=== PATIENT | male | born 1950 | race Hispanic/Latino ===

== ENCOUNTER 2021-03-04 12:17 | Emergency (ER) | payer MEDICARE ==
[~2021-03-04] VITALS: Ht 157.5 cm; Wt 93.9 kg
[2021-03-04] MEDS ORDERED: CEPHALEXIN 500 MG CAPSULE PO ONE (12:30)
[2021-03-04] MEDS ORDERED: DEXAMETHASONE 4 MG TAB PO SCH (12:30)
[2021-03-04] MEDS ORDERED: KETOROLAC 60 MG VIAL (30MG/ML) IM ONE (12:30)
[2021-03-04 12:43] LABS: BASOPHILS % (AUTO) 0.5 % (0.0-5.0); EOSINOPHILS % (AUTO) 1.3 % (0.0-8.0); HEMATOCRIT 49.8 % (42-54); LYMPHOCYTES % (AUTO) 18.9 % (21.0-51.0); MEAN CORPUSCULAR HEMOGLOBIN 31.7 pg (27.0-33.0); MEAN CORPUSCULAR HGB CONC 32.9 g/dL (32.0-36.0); MEAN CORPUSCULAR VOLUME 96.1 fL (79-99); MONOCYTES % (AUTO) 7.8 % (3.0-13.0); NEUTROPHILS % (AUTO) 70.8 % (40.0-77.0); PLATELET COUNT (AUTO) 297 K/uL (130-400); RED BLOOD CELL COUNT(AUTO) 5.18 MIL/uL (4.50-6.20); RED CELL DISTRIBUTION WIDTH 13.3 % (11.0-15.5); WHITE BLOOD COUNT (AUTO) 9.8 K/uL (4.8-10.8)
[2021-03-04 12:55] LABS: CREATININE 0.9 mg/dL (0.5-1.5); POTASSIUM 3.7 mmol/L (3.5-5.1)
[2021-03-04 13:00] LABS: ALBUMIN 3.4 g/dL (3.5-5.0); BILIRUBIN,TOTAL 0.4 mg/dL (0.2-1.0); CRP QUANTITATIVE 10.8 mg/L (0.00-9.0); TOTAL PROTEIN, SERUM 7.8 g/dL (6.0-8.3); URIC ACID 6.3 mg/dL (2.6-7.2)
[2021-03-04] MEDS ORDERED: CEPH500B PO (13:33)
[2021-03-04] MEDS ORDERED: INDO50CA97 PO (13:33)
[2021-03-04 14:16] VITALS: BP 133/86
== END 2021-03-04 14:26 | disposition home or self-care (01) ==
LOC: EDH 12:17
DX: L03.032 Cellulitis of left toe (principal); M11.272 Other chondrocalcinosis, left ankle and foot
CPT/HCPCS: 36415; 73630; 80053; 84550; 85025; 86140; 96372; 99284; J1885; J8540

== ENCOUNTER 2021-08-02 06:48 | Day surgery (SDC) | payer MEDICARE ==
[2021-07-30 12:26] LABS: BASOPHILS % (AUTO) 0.8 % (0.0-5.0); EOSINOPHILS % (AUTO) 2.3 % (0.0-8.0); HEMATOCRIT 51.3 % (42-54); LYMPHOCYTES % (AUTO) 21.5 % (21.0-51.0); MEAN CORPUSCULAR HEMOGLOBIN 31.1 pg (27.0-33.0); MEAN CORPUSCULAR HGB CONC 32.6 g/dL (32.0-36.0); MEAN CORPUSCULAR VOLUME 95.5 fL (79-99); MONOCYTES % (AUTO) 8.1 % (3.0-13.0); NEUTROPHILS % (AUTO) 66.7 % (40.0-77.0); PLATELET COUNT (AUTO) 266 K/uL (130-400); RED BLOOD CELL COUNT(AUTO) 5.37 MIL/uL (4.50-6.20); RED CELL DISTRIBUTION WIDTH 13.4 % (11.0-15.5); WHITE BLOOD COUNT (AUTO) 8.8 K/uL (4.8-10.8)
[2021-07-30 12:30] LABS: APPEARANCE,URINE Clear (CLEAR); BILIRUBIN,URINE Negative (NEGATIVE); COLOR,URINE Dark Yellow (YELLOW); GLUCOSE, URINE (UA) Negative (NEGATIVE); KETONES,URINE Trace mg/dL (NEGATIVE); LEUKOCYTE ESTERASE ,URINE Negative (NEGATIVE); NITRATE,URINE Negative (NEGATIVE); OCCULT BLOOD,URINE Negative (NEGATIVE); PH,URINE 5.5 (5.0-8.0); PROTEIN,URINE Negative (NEGATIVE)
[2021-07-30 12:37] LABS: CREATININE 0.8 mg/dL (0.5-1.5)
[2021-07-30 12:53] LABS: BACTERIA,URINE Rare /HPF (None Seen); RBC,URINE 0-1 /HPF (0-1); SQUAMOUS EPITHELIAL CELL,UR Rare /HPF (0-2); WBC,URINE 0-1 /HPF (0-1)
[2021-07-30 13:20] LABS: INR 1.04 (0.85-1.15); PROTHROMBIN TIME 11.3 SEC (9.6-11.6)
[2021-07-30 13:21] LABS: PARTIAL THROMBOPLASTIN TIME 30.4 SEC (26.3-35.5)
[2021-08-01 08:36] VITALS: BP 129/69
[2021-08-02] VITALS (16 sets, daily range): BP systolic 107–148; BP diastolic 72–95
[~2021-08-02] VITALS: Ht 157.5 cm; Wt 93.1 kg
[2021-08-02] MEDS ORDERED: LACTATED RINGERS 1000ML 1,000 ML IV ONE (07:34)
[2021-08-02] MEDS ORDERED: CEFTRIAXONE 1G VIAL IVP ONE ×2 (08:00→09:00)
[2021-08-02] MEDS ORDERED: BOTULINUM TOXIN TYPE A 100 UNITS/VIAL INJ PRN (08:00)
[2021-08-02] MEDS ORDERED: SUCCINYLCHOLINE 200MG/10ML SYR ONE (08:41)
[2021-08-02] MEDS ORDERED: PROPOFOL 10 MG/ML 20ML VIAL IV ONE (08:41)
[2021-08-02] MEDS ORDERED: MIDAZOLAM HCL 1 MG/ML 2ML VIAL ONE (08:41)
[2021-08-02] MEDS ORDERED: LIDOCAINE PF 100MG/5ML (2%) SYRINGE 5ML ONE (08:41)
[2021-08-02] MEDS ORDERED: ROCURONIUM 10MG/1ML SYR 10 MG/ML ML ONE (08:41)
[2021-08-02] MEDS ORDERED: FENTANYL CITRATE PF 50 MCG/1 ML 2ML VIAL ONE (08:42)
[2021-08-02] MEDS ORDERED: BOTULINUM TOXIN TYPE A 100 UNITS/VIAL INJ ONE (09:09)
[2021-08-02] MEDS ORDERED: EPHEDRINE SULFATE 50 MG/ML AMPULE ONE (09:10)
[2021-08-02] MEDS ORDERED: LEVO500T90 PO (10:15)
== END 2021-08-02 11:00 | disposition home or self-care (01) ==
LOC: DAH 06:48
PROVIDERS: ATTEND Urology
DX: N39.41 Urge incontinence (principal); Z20.822 Contact with and (suspected) exposure to COVID-19; R35.0 Frequency of micturition; D30.3 Benign neoplasm of bladder; E66.01 Morbid (severe) obesity due to excess calories; Z79.899 Other long term (current) drug therapy; Z79.01 Long term (current) use of anticoagulants
CPT/HCPCS: 36415; 52287; 71045; 80048; 81001; 85025; 85610; 85730; 87077; 87088; 87186; 87635; 93005; A4213; A4215; A4221; A4222; A4223; A4248; A4358; A4663; A6260; C9803; J0330; J0585 ×2; J0696 ×2; J2001; J2250; J2704; J3010; J3490; J7120 ×2

== ENCOUNTER 2022-03-14 07:38 | Day surgery (SDC) | payer MEDICARE ==
[2022-03-08 12:38] LABS: APPEARANCE,URINE CLEAR (CLEAR); BASOPHILS % (AUTO) 0.5 % (0.0-5.0); BILIRUBIN,URINE NEGATIVE (NEGATIVE); COLOR,URINE YELLOW (YELLOW); EOSINOPHILS % (AUTO) 0.8 % (0.0-8.0); GLUCOSE, URINE (UA) NEGATIVE (NEGATIVE); HEMATOCRIT 52.6 % (42-54); KETONES,URINE NEGATIVE (NEGATIVE); LEUKOCYTE ESTERASE ,URINE NEGATIVE Leu/uL (NEGATIVE); LYMPHOCYTES % (AUTO) 19.5 % (21.0-51.0); MEAN CORPUSCULAR HEMOGLOBIN 31.5 pg (27.0-33.0); MEAN CORPUSCULAR HGB CONC 33.3 g/dL (32.0-36.0); MEAN CORPUSCULAR VOLUME 94.8 fL (79-99); MONOCYTES % (AUTO) 6.3 % (3.0-13.0); NEUTROPHILS % (AUTO) 72.1 % (40.0-77.0); NITRATE,URINE NEGATIVE (NEGATIVE); OCCULT BLOOD,URINE NEGATIVE (NEGATIVE); PH,URINE 5.5 (5.0-8.0); PLATELET COUNT (AUTO) 281 K/uL (130-400); PROTEIN,URINE NEGATIVE (NEGATIVE); RED BLOOD CELL COUNT(AUTO) 5.55 MIL/uL (4.50-6.20); RED CELL DISTRIBUTION WIDTH 13.2 % (11.0-15.5); WHITE BLOOD COUNT (AUTO) 9.8 K/uL (4.8-10.8)
[2022-03-08 12:50] LABS: INR 1.05 (0.85-1.15); PROTHROMBIN TIME 11.4 SEC (9.6-11.6)
[2022-03-08 12:51] LABS: CREATININE 0.8 mg/dL (0.5-1.5); PARTIAL THROMBOPLASTIN TIME 32.5 SEC (26.3-35.5); POTASSIUM 4.2 mmol/L (3.5-5.1)
[2022-03-13 13:23] VITALS: BP 131/78
[2022-03-14] VITALS (15 sets, daily range): BP systolic 125–151; BP diastolic 71–97
[~2022-03-14] VITALS: Ht 160 cm; Wt 91.2 kg
[2022-03-14] MEDS: BOTULINUM TOXIN TYPE A 100 UNITS/VIAL INJ SCH ×2 (06:00→10:40)
[2022-03-14] MEDS: CEFTRIAXONE 1G VIAL IVP SCH ×2 (06:00→10:16)
[~2022-03-14 07:38] MED LIST: ACET-2123 PO
[2022-03-14] MEDS ORDERED: LACTATED RINGERS 1000ML 1,000 ML IV ONE (07:57)
[2022-03-14] MEDS ORDERED: LIDOCAINE PF 100MG/5ML (2%) SYRINGE 5ML ONE (09:42)
[2022-03-14] MEDS ORDERED: MIDAZOLAM HCL 1 MG/ML 2ML VIAL ONE (09:43)
[2022-03-14] MEDS ORDERED: ONDANSETRON 4MG INJ ONE (09:43)
[2022-03-14] MEDS ORDERED: PROPOFOL 10 MG/ML 20ML VIAL IV ONE (09:43)
[2022-03-14] MEDS ORDERED: FENTANYL CITRATE PF 50 MCG/1 ML 2ML VIAL ONE (09:44)
[2022-03-14] MEDS ORDERED: KETOROLAC 30MG VIAL (30MG/ML) ONE (09:44)
[2022-03-14] MEDS ORDERED: GLYCOPYRROLATE 1 MG/5 ML SYRINGE ONE (10:34)
[2022-03-14] MEDS ORDERED: EPHEDRINE SULFATE 50 MG/ML AMPULE ONE (10:35)
== END 2022-03-14 13:15 | disposition home or self-care (01) ==
LOC: DAH 07:38
PROVIDERS: ATTEND Urology
DX: N39.41 Urge incontinence (principal); Z20.822 Contact with and (suspected) exposure to COVID-19; R35.0 Frequency of micturition; E66.01 Morbid (severe) obesity due to excess calories; I25.2 Old myocardial infarction; Z79.01 Long term (current) use of anticoagulants; Z79.899 Other long term (current) drug therapy
CPT/HCPCS: 80048; 85025; 85610; 85730; 87088; 87426; 81003; 36415; 71045; 93005; 52287; A4663; J7120 ×2; C1758; J3010; J3490 ×2; J2001; J0696; J2250; J2704; J2405; J1885; J0585; A4358; A4215 ×2; A4223; A4222; A4221; A4600

== ENCOUNTER 2022-09-19 06:47 | Day surgery (SDC) | payer MEDICARE ==
[2022-09-13 12:43] VITALS: BP 118/74
[2022-09-13 12:56] LABS: BASOPHILS % (AUTO) 0.8 % (0.0-5.0); EOSINOPHILS % (AUTO) 1.5 % (0.0-8.0); HEMATOCRIT 53.1 % (42-54); MEAN CORPUSCULAR HEMOGLOBIN 30.7 pg (27.0-33.0); MEAN CORPUSCULAR HGB CONC 32.4 g/dL (32.0-36.0); MEAN CORPUSCULAR VOLUME 94.7 fL (79-99); MONOCYTES % (AUTO) 7.8 % (3.0-13.0); NEUTROPHILS % (AUTO) 68.3 % (40.0-77.0); PLATELET COUNT (AUTO) 323 K/uL (130-400); RED BLOOD CELL COUNT(AUTO) 5.61 MIL/uL (4.50-6.20); RED CELL DISTRIBUTION WIDTH 13.6 % (11.0-15.5); WHITE BLOOD COUNT (AUTO) 8.8 K/uL (4.8-10.8)
[2022-09-13 13:07] LABS: CREATININE 0.9 mg/dL (0.5-1.5)
[2022-09-13 13:13] LABS: APPEARANCE,URINE CLEAR (CLEAR); BILIRUBIN,URINE NEGATIVE (NEGATIVE); COLOR,URINE YELLOW (YELLOW); GLUCOSE, URINE (UA) NEGATIVE (NEGATIVE); KETONES,URINE NEGATIVE (NEGATIVE); LEUKOCYTE ESTERASE ,URINE NEGATIVE Leu/uL (NEGATIVE); NITRATE,URINE NEGATIVE (NEGATIVE); PH,URINE 5.5 (5.0-8.0); PROTEIN,URINE NEGATIVE (NEGATIVE); UROBILINOGEN,URINE 0.2 mg/dL (0.2-1.0)
[2022-09-13 13:49] LABS: MUCUS,URINE RARE LPF (None Seen); WBC,URINE 0-1 /HPF (0-1)
[~2022-09-19] VITALS: Ht 162.6 cm; Wt 90.7 kg
[2022-09-19] VITALS (15 sets, daily range): BP systolic 114–137; BP diastolic 70–87
[~2022-09-19 06:47] MED LIST changes: -ACET-2123 PO; +BOTULINUM TOXIN TYPE A 100 UNITS/VIAL INJ SCH; +CEFTRIAXONE 1G VIAL IVPB SCH; +METF-444 PO
[2022-09-19] MEDS ORDERED: MIDAZOLAM HCL 1 MG/ML 2ML VIAL ONE (08:12)
[2022-09-19] MEDS ORDERED: NEOSTIGMINE 5MG/5ML SYR IV ONE (08:12)
[2022-09-19] MEDS ORDERED: DEXAMETHASONE SOD PHOSPHATE 10MG/ML 1ML VIAL ONE (08:12)
[2022-09-19] MEDS ORDERED: SUCCINYLCHOLINE CHLORIDE 20 MG/ML 10 ML VIAL ONE ×2 (08:12→08:42)
[2022-09-19] MEDS ORDERED: LIDOCAINE PF 100MG/5ML (2%) SYRINGE 5ML ONE ×3 (08:12→08:43)
[2022-09-19] MEDS ORDERED: GLYCOPYRROLATE 1 MG/5 ML SYRINGE ONE (08:12)
[2022-09-19] MEDS ORDERED: ROCURONIUM 10MG/1ML SYR 10 MG/ML ML ONE (08:13)
[2022-09-19] MEDS ORDERED: PROPOFOL 10 MG/ML 20ML VIAL IV ONE ×2 (08:13→08:34)
[2022-09-19] MEDS ORDERED: FENTANYL CITRATE PF 50 MCG/1 ML 2ML VIAL ONE (08:15)
[2022-09-19] MEDS ORDERED: MEPERIDINE-PF 25 MG/ML SYG ONE (09:18)
== END 2022-09-19 10:19 | disposition home or self-care (01) ==
LOC: DAH 06:47
PROVIDERS: ATTEND Urology
DX: N39.41 Urge incontinence (principal); Z20.822 Contact with and (suspected) exposure to COVID-19; R35.0 Frequency of micturition; E11.9 Type 2 diabetes mellitus without complications; E66.01 Morbid (severe) obesity due to excess calories; G47.33 Obstructive sleep apnea (adult) (pediatric); E66.9 Obesity, unspecified; Z79.01 Long term (current) use of anticoagulants; Z79.899 Other long term (current) drug therapy
CPT/HCPCS: 80048; 85025; 87088; 81001; 36415; 87635; 93005; 52287; 82948 ×2; C9803; A4663; J7030; J7120; J3010; J3490; J1100; J2710; J0330 ×2; J2001 ×3; J0696; J2250; J2704 ×2; J2175; J0585; A4358; A4215 ×2; A4223; A4222; A4221; A4600

== ENCOUNTER 2023-04-17 06:35 | Day surgery (SDC) | payer MEDICARE ==
[2023-04-14 12:54] LABS: APPEARANCE,URINE CLEAR (CLEAR); BILIRUBIN,URINE NEGATIVE (NEGATIVE); COLOR,URINE YELLOW (YELLOW); GLUCOSE, URINE (UA) NEGATIVE (NEGATIVE); KETONES,URINE NEGATIVE (NEGATIVE); LEUKOCYTE ESTERASE ,URINE NEGATIVE Leu/uL (NEGATIVE); NITRATE,URINE NEGATIVE (NEGATIVE); OCCULT BLOOD,URINE NEGATIVE (NEGATIVE); PH,URINE 6.5 (5.0-8.0); PROTEIN,URINE 20 mg/dL (NEGATIVE)
[2023-04-14 12:54] LABS: BASOPHILS # (AUTO) 0.07 K/uL (0.00-0.20); BASOPHILS % (AUTO) 0.6 % (0.0-5.0); EOSINOPHILS # (AUTO) 0.17 K/uL (0.00-0.70); EOSINOPHILS % (AUTO) 1.5 % (0.0-8.0); HEMATOCRIT 52.9 % (42-54); IMMATURE GRANULOCYTE ABSOLUTE 0.06 K/uL (0-1); LYMPHOCYTES # (AUTO) 2.7 K/uL (1.0-4.8); MEAN CORPUSCULAR HEMOGLOBIN 32.5 pg (27.0-33.0); MEAN CORPUSCULAR HGB CONC 32.9 g/dL (32.0-36.0); MEAN CORPUSCULAR VOLUME 98.9 fL (79-99); MONOCYTES # (AUTO) 1.1 K/uL (0.1-1.0); MONOCYTES % (AUTO) 9.8 % (3.0-13.0); NEUTROPHILS # (AUTO) 7.5 K/uL (1.8-7.7); NEUTROPHILS % (AUTO) 64.6 % (40.0-77.0); PLATELET COUNT (AUTO) 322 K/uL (130-400); RED BLOOD CELL COUNT(AUTO) 5.35 MIL/uL (4.50-6.20); RED CELL DISTRIBUTION WIDTH 13.2 % (11.0-15.5); WHITE BLOOD COUNT (AUTO) 11.7 K/uL (4.8-10.8)
[2023-04-14 12:55] LABS: ADD UA MICROSCOPIC YES
[2023-04-14 13:02] VITALS: BP 131/70; PULSE 62; RESP 16
[2023-04-14 13:03] LABS: BACTERIA,URINE RARE /HPF (None Seen); MUCUS,URINE MANY LPF (None Seen); SQUAMOUS EPITHELIAL CELL,UR RARE /HPF (0-2)
[2023-04-14 13:10] LABS: CREATININE 0.7 mg/dL (0.5-1.5); POTASSIUM 4.1 mmol/L (3.5-5.1)
[2023-04-17] VITALS (14 sets, daily range): BP systolic 113–135; BP diastolic 71–82; PULSE 70–104; RESP 14–22
[~2023-04-17] VITALS: Ht 160 cm; Wt 82.8 kg
[2023-04-17] MEDS ORDERED: LACTATED RINGERS 1000ML 1,000 ML IV ONE (07:07)
[2023-04-17] MEDS ORDERED: CEFTRIAXONE 1G VIAL ONE (07:07)
[2023-04-17] MEDS ORDERED: BOTULINUM TOXIN TYPE A 100 UNITS/VIAL INJ ONE (07:30)
[2023-04-17] MEDS ORDERED: GLYCOPYRROLATE 1 MG/5 ML SYRINGE ONE (08:28)
[2023-04-17] MEDS ORDERED: LIDOCAINE PF 100MG/5ML (2%) SYRINGE 5ML ONE ×2 (08:28→08:29)
[2023-04-17] MEDS ORDERED: PROPOFOL 10 MG/ML 20ML VIAL IV ONE (08:28)
[2023-04-17] MEDS ORDERED: MIDAZOLAM HCL 1 MG/ML 2ML VIAL ONE (08:28)
[2023-04-17] MEDS ORDERED: SUCCINYLCHOLINE 200MG/10ML SYR ONE (08:28)
[2023-04-17] MEDS ORDERED: DEXAMETHASONE SOD PHOSPHATE 10MG/ML 1ML VIAL ONE (08:28)
[2023-04-17] MEDS ORDERED: NEOSTIGMINE 5MG/5ML SYR IV ONE (08:28)
[2023-04-17] MEDS ORDERED: ROCURONIUM 10MG/1ML SYR 10 MG/ML ML ONE (08:28)
[2023-04-17] MEDS ORDERED: FENTANYL CITRATE PF 50 MCG/1 ML 2ML VIAL ONE (08:28)
[2023-04-17] MEDS ORDERED: ONDANSETRON 4MG INJ ONE (08:28)
[2023-04-17] MEDS ORDERED: EPHEDRINE SULFATE 50 MG/ML AMPULE ONE (08:42)
== END 2023-04-17 10:30 | disposition home or self-care (01) ==
LOC: DAH 06:35
PROVIDERS: ATTEND Urology
DX: N39.41 Urge incontinence (principal); Z87.891 Personal history of nicotine dependence; Z83.3 Family history of diabetes mellitus
CPT/HCPCS: 80048; 85025; 87077 ×2; 87088; 87186 ×2; 81001; 36415; 52287; A6260; A4663; J7120 ×2; J3010; J0330; J3490 ×2; J1100; J2710; J2001 ×2; J0696; J2250; J2704; J2405; J0585; A4358; A4215 ×2; A4223; A4222; A4221; A4600

== ENCOUNTER 2023-10-30 07:46 | Day surgery (SDC) | payer MEDICARE ==
[2023-10-24 10:04] LABS: BASOPHILS # (AUTO) 0.08 K/uL (0.00-0.20); BASOPHILS % (AUTO) 0.9 % (0.0-5.0); EOSINOPHILS # (AUTO) 0.19 K/uL (0.00-0.70); EOSINOPHILS % (AUTO) 2.2 % (0.0-8.0); HEMATOCRIT 49.4 % (42-54); IMMATURE GRANULOCYTE ABSOLUTE 0.05 K/uL (0-1); LYMPHOCYTES % (AUTO) 22.9 % (21.0-51.0); MEAN CORPUSCULAR HEMOGLOBIN 31.9 pg (27.0-33.0); MEAN CORPUSCULAR HGB CONC 33.4 g/dL (32.0-36.0); MEAN CORPUSCULAR VOLUME 95.6 fL (79-99); MONOCYTES # (AUTO) 0.7 K/uL (0.1-1.0); MONOCYTES % (AUTO) 8.1 % (3.0-13.0); NEUTROPHILS # (AUTO) 5.7 K/uL (1.8-7.7); NEUTROPHILS % (AUTO) 65.3 % (40.0-77.0); PLATELET COUNT (AUTO) 278 K/uL (130-400); RED BLOOD CELL COUNT(AUTO) 5.17 MIL/uL (4.50-6.20); RED CELL DISTRIBUTION WIDTH 13.2 % (11.0-15.5); WHITE BLOOD COUNT (AUTO) 8.7 K/uL (4.8-10.8)
[2023-10-24 10:13] LABS: CREATININE 0.9 mg/dL (0.5-1.3); POTASSIUM 3.9 mmol/L (3.5-5.1)
[2023-10-24 10:18] LABS: APPEARANCE,URINE CLEAR (CLEAR); BILIRUBIN,URINE NEGATIVE (NEGATIVE); COLOR,URINE LIGHT-YELLOW (YELLOW); GLUCOSE, URINE (UA) NEGATIVE (NEGATIVE); KETONES,URINE NEGATIVE (NEGATIVE); LEUKOCYTE ESTERASE ,URINE NEGATIVE Leu/uL (NEGATIVE); NITRATE,URINE NEGATIVE (NEGATIVE); OCCULT BLOOD,URINE NEGATIVE (NEGATIVE); PH,URINE 6.5 (5.0-8.0); PROTEIN,URINE NEGATIVE (NEGATIVE); UROBILINOGEN,URINE 0.2 mg/dL (0.2-1.0)
[2023-10-24 10:25] LABS: ADD UA MICROSCOPIC NO
[2023-10-24 10:37] VITALS: BP 118/69; PULSE 64; RESP 18
[2023-10-30] VITALS (17 sets, daily range): BP systolic 113–134; BP diastolic 63–84; PULSE 59–82; RESP 14–18
[~2023-10-30] VITALS: Ht 160 cm; Wt 79.6 kg
[~2023-10-30 07:46] MED LIST changes: +BOTULINUM TOXIN TYPE A 100 UNITS/VIAL INJ ONE; -BOTULINUM TOXIN TYPE A 100 UNITS/VIAL INJ SCH; -CEFTRIAXONE 1G VIAL IVPB SCH; -METF-444 PO; +SEMA0.258 SQ
[2023-10-30] MEDS ORDERED: CEFTRIAXONE 1G VIAL ONE (08:02)
[2023-10-30] MEDS: 0.9%NACL 1000ML 1,000 ML IV ONE (08:29)
[2023-10-30] MEDS ORDERED: FENTANYL CITRATE PF 50 MCG/1 ML 2ML VIAL ONE (09:31)
[2023-10-30] MEDS ORDERED: PROPOFOL 10 MG/ML 20ML VIAL IV ONE (09:31)
[2023-10-30] MEDS ORDERED: LIDOCAINE PF 100MG/5ML (2%) SYRINGE 5ML ONE (09:31)
[2023-10-30] MEDS ORDERED: ONDANSETRON 4MG INJ ONE (09:33)
[2023-10-30] MEDS ORDERED: DEXAMETHASONE SOD PHOSPHATE 4 MG/ML 1ML VIAL ONE (09:33)
[2023-10-30] MEDS ORDERED: ACETAMINOPHEN 1,000 MG/100 ML VIAL IV ONE (09:35)
[2023-10-30] MEDS ORDERED: FAMOTIDINE 20MG VIAL IV ONE (09:35)
[2023-10-30] MEDS: BOTULINUM TOXIN TYPE A 100 UNITS/VIAL INJ ONE ×2 (11:27)
[2023-10-30] MEDS: MEPERIDINE-PF 25 MG/ML SYG ONE (12:30)
[2023-10-30] MEDS ORDERED: MUPI15CR12 TP (19:51)
== END 2023-10-30 13:30 | disposition home or self-care (01) ==
LOC: DAH 07:46
PROVIDERS: ATTEND Urology
DX: N39.41 Urge incontinence (principal); N32.89 Other specified disorders of bladder; E66.9 Obesity, unspecified; Z79.899 Other long term (current) drug therapy; Z68.31 Body mass index [BMI] 31.0-31.9, adult
CPT/HCPCS: 80048; 85025; 87088; 81003; 36415; 93005; 52287; 82948 ×2; A6260; A4663; J7120; C1758; J3490; J3010; J7030; J2001; J0696; J2704; J2405; J1100; J2175; J0585 ×2; A4358; A4215 ×2; A4223; A4213; A4222; A4221; A4600

== ENCOUNTER → 2024-02-02 | Outpatient (CLI) | payer MEDICARE ==
[~2024-02-02] MED LIST changes: -BOTULINUM TOXIN TYPE A 100 UNITS/VIAL INJ ONE; +MUPI15CR12 TP
== END | disposition home or self-care (01) ==
LOC: CANSCHCLI → RAH 13:49
PROVIDERS: ATTEND Family Medicine
DX: R09.89 Other specified symptoms and signs involving the circulatory and respiratory systems (principal)
CPT/HCPCS: 93925

== ENCOUNTER 2024-04-29 07:13 | Day surgery (SDC) | payer MEDICARE ==
[2024-04-26 11:38] VITALS: BP 106/64; PULSE 64; RESP 14; TEMP 97.4
[2024-04-26 11:42] LABS: ADD UA MICROSCOPIC YES; APPEARANCE,URINE CLEAR (CLEAR); BILIRUBIN,URINE NEGATIVE (NEGATIVE); COLOR,URINE YELLOW (YELLOW); GLUCOSE, URINE (UA) NEGATIVE (NEGATIVE); KETONES,URINE NEGATIVE (NEGATIVE); LEUKOCYTE ESTERASE ,URINE NEGATIVE Leu/uL (NEGATIVE); NITRATE,URINE NEGATIVE (NEGATIVE); PROTEIN,URINE NEGATIVE (NEGATIVE); UROBILINOGEN,URINE 0.2 mg/dL (0.2-1.0)
[2024-04-26 11:44] LABS: MUCUS,URINE FEW LPF (None Seen); SQUAMOUS EPITHELIAL CELL,UR RARE /HPF (0-2); WBC,URINE 0-1 /HPF (0-1)
[2024-04-26 11:50] LABS: CREATININE 0.8 mg/dL (0.5-1.3); POTASSIUM 4.1 mmol/L (3.5-5.1)
[2024-04-26 11:51] LABS: BASOPHILS # (AUTO) 0.05 K/uL (0.00-0.20); BASOPHILS % (AUTO) 0.5 % (0.0-5.0); EOSINOPHILS # (AUTO) 0.08 K/uL (0.00-0.70); EOSINOPHILS % (AUTO) 0.8 % (0.0-8.0); HEMATOCRIT 50.9 % (42-54); IMMATURE GRANULOCYTE ABSOLUTE 0.04 K/uL (0-1); LYMPHOCYTES # (AUTO) 1.7 K/uL (1.0-4.8); LYMPHOCYTES % (AUTO) 17.6 % (21.0-51.0); MEAN CORPUSCULAR HEMOGLOBIN 31.6 pg (27.0-33.0); MEAN CORPUSCULAR HGB CONC 32.8 g/dL (32.0-36.0); MEAN CORPUSCULAR VOLUME 96.4 fL (79-99); MONOCYTES # (AUTO) 0.9 K/uL (0.1-1.0); MONOCYTES % (AUTO) 9.4 % (3.0-13.0); NEUTROPHILS # (AUTO) 7.1 K/uL (1.8-7.7); NEUTROPHILS % (AUTO) 71.3 % (40.0-77.0); PLATELET COUNT (AUTO) 245 K/uL (130-400); RED BLOOD CELL COUNT(AUTO) 5.28 MIL/uL (4.50-6.20); RED CELL DISTRIBUTION WIDTH 13.2 % (11.0-15.5); WHITE BLOOD COUNT (AUTO) 9.9 K/uL (4.8-10.8)
[~2024-04-29] VITALS: Ht 160 cm; Wt 76.7 kg
[2024-04-29] VITALS (15 sets, daily range): BP systolic 116–134; BP diastolic 59–76; PULSE 54–81; RESP 15–22; TEMP 97.3–97.5
[2024-04-29] MEDS: BOTULINUM TOXIN TYPE A 100 UNITS/VIAL INJ ONE (07:00)
[~2024-04-29 07:13] MED LIST changes: -MUPI15CR12 TP
[2024-04-29] MEDS: cefTRIAXone 1G VIAL ONE (07:40)
[2024-04-29] MEDS ORDERED: proPOFol 10 MG/ML 20ML VIAL IV ONE (09:29)
[2024-04-29] MEDS ORDERED: MIDAZOLAM HCL 1 MG/ML 2ML VIAL ONE (09:29)
[2024-04-29] MEDS ORDERED: FENTanyl CITRate PF 50 MCG/1 ML 2ML VIAL ONE ×2 (09:29→09:38)
[2024-04-29] MEDS ORDERED: SUCCINYLCHOLINE CHLORIDE 20 MG/ML 10 ML VIAL ONE (09:38)
[2024-04-29] MEDS ORDERED: ondanSETRON 4MG INJ ONE (09:38)
[2024-04-29] MEDS ORDERED: rocuRONium bROMide 10MG/1ML 5ML VL ONE (09:43)
[2024-04-29] MEDS: LACTATED RINGERS 1000ML 1,000 ML IV ONE (09:56)
[2024-04-29] MEDS: cefTRIAXone 1G VIAL IVPB ONE (09:59)
[2024-04-29] MEDS ORDERED: phenylEPHRINE HCL 10 MG/ML 1ML VIAL IV ONE (10:09)
[2024-04-29] MEDS ORDERED: GLYCOPYRROLATE 0.2 MG/ML 5 ML VIAL ONE (10:17)
[2024-04-29] MEDS ORDERED: ePHEDrine SULFate 50 MG/ML AMPULE ONE (10:23)
[2024-04-29] MEDS ORDERED: Solu-medROL 40MG VIAL ONE (10:55)
[2024-04-29] MEDS ORDERED: DiphenhydrAMINE HCL 50 MG/ML VIAL ONE (10:55)
--- NOTE | 2024-04-29 11:02 | OP ---
DATE OF PROCEDURE: 04/29/2024 PREOPERATIVE DIAGNOSES: Urinary urge incontinence, urinary frequency. POSTOPERATIVE DIAGNOSES: Urinary urge incontinence, urinary frequency. OPERATION PERFORMED: Cystoscopy with Botox injection. ANESTHESIA: General. INDICATIONS FOR PROCEDURE: The patient is a 73-year-old male who presents for his sixth Botox injection. The patient has had good clinical results with the Botox. The risks of surgery were discussed to include bleeding, infection, urinary retention, Botox systemic side effects and the need for other procedures and failure to improve his urinary symptoms. The patient reports understanding and agrees to proceed. DESCRIPTION OF PROCEDURE: The patient was given preoperative Rocephin. The patient was subsequently taken back to the operating room where general anesthesia was given. The patient was prepped and draped in a lithotomy position. A 22-Luxembourger cystoscope was placed into the bladder. There were no urethral strictures or evidence of benign prostatic hyperplasia obstruction. The bladder was mildly trabeculated, but otherwise there were no mucosal lesions identified. At this time, 100 units of Botox were reconstituted. Using a Coloplast injection needle, 20 detrusor muscle injections were performed throughout the bladder, sparing the trigone. There were no complications noted during the injections. The patient was taken to the recovery room in stable condition. The patient is to follow up next week for a post-procedural check. TID: [id number] RECEIPT: [id number]
[2024-04-29] MEDS: FAMOTIDINE 20MG VIAL IV ONE (11:11)
--- NOTE | 2024-04-29 12:00 | NUR ---
Patient aox4. Denies c/o pain or discomfort. Voiced understanding to Cystoscopy with Botox injection precautions and follow up expectations. Ambulated to bathroom with standby assist. Voided small amount of clear urine. PIV discontinued with catheter tip intact. Full and complete Discharge instructions given to Patient and Family. All questions answered. W/C to POV with Family to Home.
== END 2024-04-29 12:00 | disposition home or self-care (01) ==
LOC: DAH 07:13
PROVIDERS: ATTEND Urology
DX: N39.41 Urge incontinence (principal); R35.0 Frequency of micturition; E66.01 Morbid (severe) obesity due to excess calories; Z68.30 Body mass index [BMI] 30.0-30.9, adult; Z87.891 Personal history of nicotine dependence; Z83.3 Family history of diabetes mellitus; Z79.899 Other long term (current) drug therapy; Z98.890 Other specified postprocedural states
CPT/HCPCS: 80048; 85025; 81001; 36415; 52287; 82948; A6260; A4663; J7030; J7120 ×2; J1200; J3490 ×3; J3010 ×2; J0330; J0696 ×2; J2250; J2704; J2405; J2919; J2371; J0585; A4358; A4215 ×2; A4223 ×2; A4213; A4222; A4221; A4216; A4600